=== PATIENT | male | born 1955 | race Caucasian/White ===

== ENCOUNTER 2016-07-20 09:19 | Inpatient (IN) | payer OTHER ==
[2016-07-17 16:59] VITALS: BMI 37.6
[~2016-07-20] VITALS: Ht 170.2 cm; Wt 108.0 kg
[2016-07-20] VITALS (13 sets, daily range): BP systolic 100–138; BP diastolic 57–70; PULSE 60–83; RESP 17–21; Ht 170.2 cm; Wt 108.0 kg
[~2016-07-20 09:19] MED LIST: CEFAZOLIN 1 GM INJ ONE; DEXAMETHASONE 4 MG/ML 1 ML INJ ONE
[2016-07-20] MEDS ORDERED: AMLO1CAP2 PO (10:19)
[2016-07-20] MEDS ORDERED: MONT10TA21 PO (10:19)
[2016-07-20] MEDS ORDERED: ATOR20TA38 PO (10:19)
[2016-07-20] MEDS ORDERED: GABA800T PO (10:19)
[2016-07-20] MEDS ORDERED: METF-388 PO (10:19)
[2016-07-20] MEDS ORDERED: TEMA15CA6 PO (10:21)
[2016-07-20] MEDS ORDERED: BUPIVACAINE 0.5%/EPI (SDV) 30 ML INJ ONE (10:56)
[2016-07-20] MEDS ORDERED: MIDAZOLAM 1 MG/ML 2 ML INJ ONE ×2 (11:03)
[2016-07-20] MEDS ORDERED: LIDOCAINE 2% (SDV) 5 ML INJ ONE ×2 (11:46→11:47)
[2016-07-20] MEDS ORDERED: PROPOFOL 20 ML ONE (11:46)
[2016-07-20] MEDS ORDERED: ROCURONIUM 50 MG INJ ONE ×3 (11:50→15:55)
[2016-07-20] MEDS ORDERED: ACETAMINOPHEN 1000MG/100ML IV 100 ML ONE (12:19)
[2016-07-20] MEDS ORDERED: morphine 10 MG INJ IV PRN (12:30)
[2016-07-20] MEDS ORDERED: ONDANSETRON 4 MG INJ IV PRN ×3 (12:30→14:00)
[2016-07-20] MEDS ORDERED: BISACODYL 10 MG SUPP PR PRN (12:30)
[2016-07-20] MEDS ORDERED: OXYCODONE/ACETAMINOPHEN (5/325) TAB PO PRN ×2 (12:30)
[2016-07-20] MEDS ORDERED: CEFAZOLIN 1 GM INJ IV SCH (12:30)
[2016-07-20] MEDS ORDERED: DIPHENHYDRAMINE 25 MG CAP PO PRN (12:30)
[2016-07-20] MEDS ORDERED: LABETALOL HCL 20MG INJ ONE ×2 (12:55→15:21)
[2016-07-20] MEDS ORDERED: POLYMYXIN/BACITRACIN 1L IRRIG ONE (13:05)
[2016-07-20] MEDS ORDERED: GELATIN SIZE 100 SPONGE ONE (13:05)
[2016-07-20] MEDS ORDERED: THROMBIN 5000 UNIT VIAL ONE (13:05)
[2016-07-20] MEDS ORDERED: ROPIVACAINE 0.5 % 30 ML VIAL ONE (13:05)
[2016-07-20] MEDS ORDERED: POVIDONE IODINE 10% 28.4 GM OINT ONE (13:05)
[2016-07-20] MEDS ORDERED: DIPHENHYDRAMINE 50 MG INJ IV PRN (14:00)
[2016-07-20] MEDS ORDERED: HYDROmorphONE 1 MG/ML SYG IV PRN ×2 (14:00)
[2016-07-20] MEDS ORDERED: NALOXONE (0.4 MG/ML) INJ IV PRN (14:00)
[2016-07-20] MEDS ORDERED: hydrALAzine 20 MG INJ IV PRN (14:00)
[2016-07-20] MEDS ORDERED: FENTAnyl 50 MCG/ML VIAL IV PRN ×2 (14:00)
[2016-07-20] MEDS ORDERED: MEPERIDINE 25 MG INJ IV PRN (14:00)
[2016-07-20] MEDS ORDERED: LABETALOL HCL 20MG INJ IV PRN (14:00)
[2016-07-20] MEDS ORDERED: HYDROmorphONE (0.2 MG/ML) 10ML SYG IV PRN ×3 (14:00)
[2016-07-20] MEDS ORDERED: BACITRACIN 50000 UNITS INJ ONE (14:38)
[2016-07-20] MEDS ORDERED: FENTAnyl 50 MCG/ML VIAL ONE (15:05)
[2016-07-20] MEDS ORDERED: ONDANSETRON 4 MG INJ ONE (15:54)
[2016-07-20] MEDS ORDERED: KETOROLAC 30 MG INJ ONE (16:16)
--- NOTE | 2016-07-20 16:48 | RADRPT ---
PROCEDURE: Intraoperative imaging of the right foot with fluoroscopy. CLINICAL INDICATION: Right foot pain. Intraoperative. TECHNIQUE: 9 images of the right foot were obtained in the operating room with an image intensifie r. No radiologist was in attendance. 0.5 minutes of fluoroscopy time was used. COMPARISON: No prior study is available for comparison. FINDINGS: Images demonstrate surgical instruments overlying the right midfoot. IMPRESSION: 1. Intraoperative imaging of the right foot. RPTAT: QQ .Tico Clarke MD, MD Date Time Electronically viewed and signed by .Tico Clarke MD, MD on 07/20/2016 16:48 .R/
[2016-07-20] MEDS: morphine 1 MG/ML 30 ML (PCA) IV SCH ×2 (17:44→22:56)
[2016-07-20] MEDS: VALSARTAN 160 MG TAB PO SCH (18:00)
[2016-07-20] MEDS ORDERED: DEXTROSE 50% 50 ML SYRINGE IV PRN ×2 (18:00)
[2016-07-20] MEDS ORDERED: GLUCOSE GEL 15 GRAM TUBE BUCCAL PRN (18:00)
[2016-07-20] MEDS: AMLODIPINE 10 MG TAB PO SCH (18:00)
[2016-07-20] MEDS ORDERED: GLUCOSE GEL 15 GRAM TUBE PO PRN ×2 (18:00)
[2016-07-20] MEDS ORDERED: GLUCAGON 1 MG INJ IM PRN (18:00)
--- NOTE | 2016-07-20 19:49 | CONS ---
DATE OF ADMISSION: 07/20/2016 DATE OF CONSULTATION: Thank you very much, Dr. Chambers, for allowing me to evaluate the above patient who just underwent ri ght foot surgery. HISTORICAL EVENTS: As you well know, this patient has had a 10 year history of worsening pain invol ving the lateral right foot and, because of this, was evaluated by you and, following your evaluatio n and CT imaging, elected to proceed with surgery. In recovery, he denies cough, wheezing, shortnes s of breath, nausea, vomiting, abdominal or chest pain. Does note some discomfort involving the rig ht antecubital fossa. PAST MEDICAL HISTORY: Includes: 1. Correction of a deviated septum. 2. History of GERD. 3. Diabetes. 4. Overweight status. 5. Hypertension MEDICATIONS: 1. Metformin 1000 mg b.i.d. 2. Lotrel 5/20 per day. 3. Singulair 10 per day. 4. Gabapentin 800 mg t.i.d. 5. Temazepam 15 mg at night. 6. Atorvastatin 20 mg per day. SOCIAL HISTORY: He is , does smoke. He does drink alcohol. PHYSICAL EXAMINATION: GENERAL: Kerrick male in no acute distress. VITAL SIGNS: BP 122/80, pulse 70, respirations are 20. He was afebrile. EYES: Extraocular muscles were full. NOSE, MOUTH, AND THROAT: Normal. NECK: Supple. There was no jugular venous distention, thyroid enlargement, or adenopathy. Carotid s 2+. LUNGS: Clear. HEART: Rhythm regular. ABDOMEN: Nontender. Liver and spleen were not palpable. No masses or tenderness were noted. EXTREMITIES: Right was in a cast. The left no edema, no calf tenderness. The right antecubital fo ssa revealed some slight tenderness. No redness, swelling. IMPRESSION: 1. Stable postop right foot surgery. 2. History of hypertension. Blood pressure meds will be continued and blood pressure monitored thr oughout. 3. Hyperlipidemia. Statins will be continued. 4. Pain involving the left antecubital fossa, likely musculoligamentous. 5. Diabetes mellitus. Continue metformin and will use a short-acting insulin before meals pending sugar levels. Dictated By: KHADRA CRAVEN MD MR/NTS Conf#: [id number] DID#: [id number]
[2016-07-20] MEDS: SOD CHLORIDE 0.9% 1,000 ML IV SCH ×2 (20:27→22:11)
[2016-07-20] MEDS ORDERED: ZOLPIDEM 5 MG TAB PO PRN (21:00)
[2016-07-20] MEDS ORDERED: MONTELUKAST 10 MG TAB PO SCH (21:00)
[2016-07-20] MEDS ORDERED: GABAPENTIN 400 MG CAP PO SCH (21:00)
[2016-07-20] MEDS ORDERED: ATORVASTATIN 20 MG TAB PO SCH ×2 (21:00)
[2016-07-20] MEDS: CEFAZOLIN 2 GM/50 ML (PMX) 50 ML IVPB SCH (21:25)
[2016-07-20] MEDS: SENNA/DOCUSATE NA (8.6MG/50MG) TAB PO SCH (21:26)
[2016-07-20] MEDS: GABAPENTIN 400 MG CAP PO SCH (21:26)
[2016-07-20] MEDS: ZOLPIDEM 5 MG TAB PO PRN (21:46)
--- NOTE | 2016-07-20 21:56 | OPR ---
DATE OF OPERATION: 07/20/2016 PREOPERATIVE DIAGNOSES: 1. 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 2. Large severe talonavicular osteophytes. POSTOPERATIVE DIAGNOSES: 1. 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 2. Large severe talonavicular osteophytes. OPERATION PERFORMED: 1. Arthrodesis of the right talonavicular joint with a 4.5 AO cannulated screw and a [employer] plate. 2. Excision of large spurs of the talus and navicular greater than 3 cm in size. 3. Iliac crest bone graft plus augment to the arthrodesis site. 4. Use of fluoroscopy to verify position and alignment of the guide pins, screws, and plate, and al so to verify removal of all osteophytes of talonavicular joint. 5. Short-leg cast. Extremely complex difficult procedure because the anatomy was quite abnormal, was quite altered, was difficult because of the large bone spurs that were scarred to the capsule to obtain good access to the talonavicular joint and the surgery itself was quite difficult because of the collapse of the n avicular. All this necessitated an additional 60 minutes of time, (22). SURGEON: Cyndy Chambers MD SCREW SUPERVISOR: Garth Varela ANESTHESIA: General with popliteal block. TOURNIQUET TIME: 138 minutes. DESCRIPTION OF PROCEDURE: The patient taken to the operating room and placed supine. Satisfactory popliteal block was given. Satisfactory general anesthesia was administered. The right iliac crest and the entire right lower leg were prepped and draped in the usual manner. Attention was turned f irst to the iliac crest. The skin was pulled up. An incision was made over the mid portion of the anterior iliac crest. Dis section carried down to subcutaneous tissue. The fascia was identified and opened over the iliac cr est. Retractors were used to retract the fascia. A saw was used to make 2 vertical cuts and 1 hori zontal cut and to open a trap door on the iliac crest cortical portion. Bone graft was obtained usi ng different angled curettes. Bone marrow aspirate was obtained with a syringe inserted with the sienna ne graft. After adequate bone graft had been obtained, the areas were packed with thrombin-soaked G elfoam. Gloves were changed. Our attention then turned to the foot. Incision was made along the talonavicular joint, carried proximal and distal, just medial to the ant erior tibial tendon. Dissection carried down to subcutaneous tissue. Anterior tibial tendon sheath , extensor retinaculum was opened and anterior tibial tendon was retracted. There was a lot of scar ring and the large talonavicular osteophytes were distorting the joint as well. The capsule was car efully peeled off medially and laterally, particularly over the osteophytes, until we could identify the entire talonavicular joint and then the naviculocuneiform joint. The osteophytes were removed with an osteotome and a rongeur from the talus and the navicular. A power rasp and a bur were used to smooth the remaining edges along the entire joint. Lateral fluoroscopic views showed complete re moval of the talonavicular osteophytes. The large osteophyte measured greater than 3 cm. A distrac tion device with pins was placed on the talonavicular joint. The joint was distracted. Further ost eophytes were removed circumferentially using different angled curettes. All of the sclerotic carti lis and bone were removed carefully. The cysts were curetted out along the navicular and talus. A bur was used to remove no more than 0.5 to 1 mm of bone along the navicular and talus to good bleed ing surfaces. Multiple "spot welds" were made with the bur to facilitate healing. A 0.045 K-wire w as used to drill multiple holes, then multiple impacts were made with an osteotome on the talus and navicular. Wounds irrigated repeatedly with antibiotic solution. The distraction device and pins w ere removed. Bone graft was inserted after it was mixed with augment try to get it to heal, since t his is such a difficult area to heal normally. Bone graft was inserted along the talonavicular join t. The foot was reduced, lined up to the knee. A guide pin from the 4.5 AO cannulated screw set wa s inserted at the naviculocuneiform joint and inserted medially. Excellent fixation was obtained. Excellent alignment of the foot and ankle and the pin was in appropriate position in the AP and late ral radiographs. Hole was partially drilled and then an appropriate length screw was inserted. We then compressed it all the way. A 4-hole [employer] claw plate was then inserted with a K-wire. We checked to make sure the hole was in the right position because the navicular was quite narrow and it tapered laterally. We tried to keep the claw plate as much as we could more medially where t here was more bone. Four 3.5 screws, locked, were inserted. Excellent fixation was obtained. The position of the claw plate and screws was appropriate. We did not violate into the joints. The com pression was then placed on the 4.5 screw until the joint was strongly compressed and then compressi on device was used to spread the claw plate and compress further. Additional bone graft was packed throughout the joint. Wounds irrigated with antibiotic solution, being careful not to lose the bone graft. The tourniquet was released. Bleeders were coagulated. The capsule was closed with a runn ing 0 undyed Vicryl. The tendon sheath was closed with a running 3-0 undyed Vicryl, subcutaneous ti ssue was closed loosely just a few sutures, with 3-0 undyed Vicryl and skin was closed with 4-0 ana k nylon. Gloves were changed repeatedly throughout the closure. The iliac crest wounds were irrigated clear. Thrombin soaked Gelfoam pieces were removed. The fasc ia was closed with a running #1 PDS, subcutaneous tissue was closed with 2-0 and 3-0 undyed Vicryl, and the skin with a running 3-0 subcuticular Prolene. Steri-Strips were applied as well as compress ion dressing to the hip. Compression dressing was then applied to the foot after a saphenous nerve block was done with 0.5% ropivacaine. Compression dressing was applied as well as short-leg cast in neutral position. Interprocedure sponge and needle count was correct. The patient tolerated proce dure well and the cast was split in the recovery room. COMMUNITY ENGAGEMENT COORDINATOR ORTHOPEDIC SURGEON: During the procedure, an animal assistant orthopedic surgeon was used at my request. The animal assistant helped with retraction, distraction, as well as helping obtain the iliac cre st bone graft. Most importantly, the animal assistant inserted the screws while I held the foot reduced in appropriate position. Without a skilled orthopedic surgeon doing this, this procedure could not diaz ve been done; therefore, should be compensated appropriately. Dictated By: CYNDY BANKS/ARMANDO Conf#: [id number] DID#: [id number]
[2016-07-21] VITALS (9 sets, daily range): BP systolic 100–133; BP diastolic 56–80; PULSE 70–93; RESP 17–20
[2016-07-21] MEDS: ZOLPIDEM 5 MG TAB PO PRN (00:31)
[2016-07-21] MEDS: CEFAZOLIN 2 GM/50 ML (PMX) 50 ML IVPB SCH ×3 (02:20→18:00)
--- NOTE | 2016-07-21 07:12 | PN ---
Date/Time of Note Date/Time of Note DATE: 07/21/16 TIME: 07:06 Assessment/Plan VTE Prophylaxis VTE Prophylaxis Intervention: anti-embolic stocking, other Lines/Catheters IV Catheter Type (from Nrsg): Peripheral IV Assessment/Plan Chief Complaint/Hosp Course #1 POD1 s/p right talonavicular fusion #2 Hypertension #3 DM 2 Problems: Assessment/Plan - Manage pain but balance with somnolence. (Currently satting 93%) - Wean TRANSPORT RN when able - Home later today versus tomorrow - PT to mobilize, NWB RLE - Xarelto for DVT prophy with SCD to other leg - Call team for dismissal order if ready to leave Subjective 24 Hr Interval Summary Free Text/Dictation Patient did well overnight with no acute events. He is quite somnolent this morning and sleeping comfortably. He does wake to answer questions briefly and denies pain. Denies CP,SOB. Cardiovascular: no complaints Exam/Review of Systems Vital Signs Vitals Vital Signs Date Time Temp Pulse Resp B/P Pulse Ox O2 Delivery O2 Flow Rate FiO2 07/21/16 03:52 93 17 133/75 95 Nasal Cannula 07/21/16 00:28 98.0 07/20/16 20:00 2.0 Intake and Output 07/20/16 07/20/16 07/21/16 15:00 23:00 07:00 Intake Total 1500 ml 130 ml 750 ml Output Total 150 ml Balance 1500 ml -20 ml 750 ml Exam Patient somnolent in bed but arousable. His right foot is elevated in the cast. He is just starting to be able to wiggle his toes. Endorses returning sensation on the dorsum of his foot. His foot is warm and well perfused with normal capillary refill. Results Results 24 hrs Laboratory Tests Test 07/20/16 10:08 07/20/16 17:55 Bedside Glucose 122 132 Medications Medications Current Medications Senna/Docusate Sodium (Senokot-S) 1 tab BID PO Last administered on 07/20/16t 21 :26; Admin Dose 1 TAB; Start 07/20/16 at 21:00 Magnesium Hydroxide (Milk Of Mag) 30 ml HS PO ; Start 07/22/16 at 21:00 Bisacodyl 10 mg 10 mg DAILY PRN [place] CONSTIPATION; Start 07/20/16 at 12:30 Sodium Chloride (NS) 1,000 ml @ 100 mls/hr Q10H IV Last administered on 20:27; Admin Dose 100 MLS/HR; Start 07/20/16 at 12:11 Oxycodone/ Acetaminophen (Percocet (5/ 325)) 1 tab Q4H PRN PO PAIN; Start at 12:30 Oxycodone/ Acetaminophen (Percocet (5/ 325)) 2 tab Q4H PRN PO PAIN; Start at 12:30 Morphine Sulfate (morphine) 5 mg Q4H PRN IV PAIN LEVEL 7-10; Start 07/20/16 at 12:30 Ondansetron HCl (Zofran Inj) 4 mg Q4H PRN IV NAUSEA AND/OR VOMITING; Start 07/20 at 12:30 Diphenhydramine HCl (Benadryl) 25 mg Q4H PRN PO ITCHING; Start 07/20/16 at 12:30 Morphine Sulfate 1.5 MG DOSE 10 ... Q4PCA IV Last administered on 07/20/16 22: 56; Admin Dose 30 MG; Start 07/20/16 at 12:30 Cefazolin Sodium/ Dextrose (Ancef 2 Gm/50 ml (Pmx)) 50 ml @ 100 mls/hr Q8H IVPB Last administered on 07/21/16 02:20; Admin Dose 100 MLS/HR; Start at 18:00; Stop 07/22/16 at 10:29 Hydromorphone HCl (Dilaudid) 0.2 mg Q2H PRN IV PAIN LEVEL 1-5; Start 07/20/16 at 14:00; Stop 07/21/16 at 13:59 Hydromorphone HCl (Dilaudid) 0.4 mg Q2H PRN IV PAIN LEVEL 6-10; Start 07/20/16 at 14:00; Stop 07/21/16 at 13:59 Diphenhydramine HCl (Benadryl) 25 mg Q4H PRN IV PRURITUS; Start 07/20/16 at 14: 00; Stop 07/21/16 at 13:59 Ondansetron HCl (Zofran Inj) 4 mg Q6H PRN IV NAUSEA AND/OR VOMITING; Start 07/20 at 14:00; Stop 07/21/16 at 13:59 Naloxone HCl (Narcan) 0.2 mg Q2M PRN IV FOR RESP RATE 8 OR LESS; Start 07/20/16 at 14:00; Stop 07/21/16 at 13:59 Atorvastatin Calcium (Lipitor) 20 mg HS PO Last administered on 07/20/16 21:26 ; Admin Dose 20 MG; Start 07/20/16 at 21:00 Gabapentin (Neurontin) 800 mg TID PO Last administered on 07/20/16 21:26; Admin Dose 800 MG; Start 07/20/16 at 21:00 Montelukast Sodium (Singulair) 10 mg QHS PO Last administered on 07/20/16 21:26 ; Admin Dose 10 MG; Start 07/20/16 at 21:00 Amlodipine Besylate (Norvasc) 10 mg DAILY PO ; Start 07/20/16 at 18:00 Valsartan (Diovan) 160 mg DAILY PO ; Start 07/20/16 at 18:00 Miscellaneous Information 1 ea NOTE XX ; Start 07/20/16 at 18:00 Glucose (Glutose) 15 gm Q15M PRN PO DECREASED GLUCOSE; Start 07/20/16 at 18:00 Glucose (Glutose) 22.5 gm Q15M PRN PO DECREASED GLUCOSE; Start 07/20/16 at 18:00 Dextrose (D50w Syringe) 25 ml Q15M PRN IV DECREASED GLUCOSE; Start 07/20/16 at 18:00 Dextrose (D50w Syringe) 50 ml Q15M PRN IV DECREASED GLUCOSE; Start 07/20/16 at 18:00 Glucagon (Glucagen) 1 mg Q15M PRN IM DECREASED GLUCOSE; Start 07/20/16 at 18:00 Glucose (Glutose) 15 gm Q15M PRN BUCCAL DECREASED GLUCOSE; Start 07/20/16 at 18: 00 CYNDY ORLANDO MD Jul 21, 2016 07:11
[2016-07-21] MEDS: INSULIN ASPART [NOVOLOG] 3 ML PEN SC SCH ×3 (07:20→17:25)
[2016-07-21] MEDS: metFORMIN 500 MG TAB PO SCH ×2 (07:50→17:55)
[2016-07-21] MEDS: SOD CHLORIDE 0.9% 1,000 ML IV SCH ×2 (08:39→18:11)
--- NOTE | 2016-07-21 08:42 | CONS ---
Date/Time of Note Date/Time of Note DATE: 07/21/16 TIME: 08:39 Assessment/Plan Assessment/Plan Additional Assessment/Plan 1. S/P right foot surgery, stable 2. Hx HBP, BP well controlled. 3. Hx DM, sugar well controlled. 4. Somnolent, I will rev with RN pain med program. 5. Labs are pending. Consultation Date/Type/Reason Admit Date/Time Jul 20, 2016 at 12:11 Initial Consult Date Detailed Summary Respiratory: No cough, No shortness of breath Cardiovascular: No chest pain Gastrointestinal: no complaints Genitourinary: no complaints Musculoskeletal: bone/joint pain (mild right foot discomfort) Exam/Review of Systems Vital Signs Vitals Vital Signs Date Time Temp Pulse Resp B/P Pulse Ox O2 Delivery O2 Flow Rate FiO2 07/21/16 08:10 97.8 89 20 129/65 92 07/21/16 03:52 Nasal Cannula 07/20/16 20:00 2.0 Intake and Output 07/20/16 07/20/16 07/21/16 15:00 23:00 07:00 Intake Total 1500 ml 130 ml 1200 ml Output Total 150 ml 300 ml Balance 1500 ml -20 ml 900 ml Exam Neck: No jvd Respiratory: clear to auscultation Cardiovascular: regular rate and rhythm Gastrointestinal: soft Extremities: edema (left foot, right in cast) Results Results 24 hrs Laboratory Tests Test 07/20/16 10:08 07/20/16 17:55 07/21/16 08:08 Bedside Glucose 122 132 199 Medications Medications Current Medications Senna/Docusate Sodium (Senokot-S) 1 tab BID PO Last administered on 07/20/16 21 :26; Admin Dose 1 TAB; Start 07/20/16 at 21:00 Magnesium Hydroxide (Milk Of Mag) 30 ml HS PO ; Start 07/22/16 at 21:00 Bisacodyl 10 mg 10 mg DAILY PRN [place] CONSTIPATION; Start 07/20/16 at 12:30 Sodium Chloride (NS) 1,000 ml @ 100 mls/hr Q10H IV Last administered on 20:27; Admin Dose 100 MLS/HR; Start 07/20/16 at 12:11 Oxycodone/ Acetaminophen (Percocet (5/ 325)) 1 tab Q4H PRN PO PAIN; Start at 12:30 Oxycodone/ Acetaminophen (Percocet (5/ 325)) 2 tab Q4H PRN PO PAIN; Start at 12:30 Morphine Sulfate (morphine) 5 mg Q4H PRN IV PAIN LEVEL 7-10; Start 07/20/16 at 12:30 Ondansetron HCl (Zofran Inj) 4 mg Q4H PRN IV NAUSEA AND/OR VOMITING; Start 07/20 at 12:30 Diphenhydramine HCl (Benadryl) 25 mg Q4H PRN PO ITCHING; Start 07/20/16 at 12:30 Morphine Sulfate 1.5 MG DOSE 10 ... Q4PCA IV Last administered on 07/20/16 22: 56; Admin Dose 30 MG; Start 07/20/16 at 12:30 Cefazolin Sodium/ Dextrose (Ancef 2 Gm/50 ml (Pmx)) 50 ml @ 100 mls/hr Q8H IVPB Last administered on 07/21/16 02:20; Admin Dose 100 MLS/HR; Start at 18:00; Stop 07/22/16 at 10:29 Hydromorphone HCl (Dilaudid) 0.2 mg Q2H PRN IV PAIN LEVEL 1-5; Start 07/20/16 at 14:00; Stop 07/21/16 at 13:59 Hydromorphone HCl (Dilaudid) 0.4 mg Q2H PRN IV PAIN LEVEL 6-10; Start 07/20/16 at 14:00; Stop 07/21/16 at 13:59 Diphenhydramine HCl (Benadryl) 25 mg Q4H PRN IV PRURITUS; Start 07/20/16 at 14: 00; Stop 07/21/16 at 13:59 Ondansetron HCl (Zofran Inj) 4 mg Q6H PRN IV NAUSEA AND/OR VOMITING; Start 07/20 at 14:00; Stop 07/21/16 at 13:59 Naloxone HCl (Narcan) 0.2 mg Q2M PRN IV FOR RESP RATE 8 OR LESS; Start 07/20/16 at 14:00; Stop 07/21/16 at 13:59 Atorvastatin Calcium (Lipitor) 20 mg HS PO Last administered on 07/20/16 21:26 ; Admin Dose 20 MG; Start 07/20/16 at 21:00 Gabapentin (Neurontin) 800 mg TID PO Last administered on 07/20/16 21:26; Admin Dose 800 MG; Start 07/20/16 at 21:00 Montelukast Sodium (Singulair) 10 mg QHS PO Last administered on 07/20/16 21:26 ; Admin Dose 10 MG; Start 07/20/16 at 21:00 Amlodipine Besylate (Norvasc) 10 mg DAILY PO ; Start 07/20/16 at 18:00 Valsartan (Diovan) 160 mg DAILY PO ; Start 07/20/16 at 18:00 Miscellaneous Information 1 ea NOTE XX ; Start 07/20/16 at 18:00 Glucose (Glutose) 15 gm Q15M PRN PO DECREASED GLUCOSE; Start 07/20/16 at 18:00 Glucose (Glutose) 22.5 gm Q15M PRN PO DECREASED GLUCOSE; Start 07/20/16 at 18:00 Dextrose (D50w Syringe) 25 ml Q15M PRN IV DECREASED GLUCOSE; Start 07/20/16 at 18:00 Dextrose (D50w Syringe) 50 ml Q15M PRN IV DECREASED GLUCOSE; Start 07/20/16 at 18:00 Glucagon (Glucagen) 1 mg Q15M PRN IM DECREASED GLUCOSE; Start 07/20/16 at 18:00 Glucose (Glutose) 15 gm Q15M PRN BUCCAL DECREASED GLUCOSE; Start 07/20/16 at 18: 00 KHADRA CRAVEN MD Jul 21, 2016 08:41
[2016-07-21] MEDS ORDERED: AMLODIPINE 10 MG TAB PO SCH (09:00)
[2016-07-21] MEDS: VALSARTAN 160 MG TAB PO SCH (09:00)
[2016-07-21] MEDS: SENNA/DOCUSATE NA (8.6MG/50MG) TAB PO SCH (09:00)
[2016-07-21] MEDS: AMLODIPINE 10 MG TAB PO SCH (09:00)
[2016-07-21] MEDS: GABAPENTIN 400 MG CAP PO SCH ×2 (09:00→13:19)
[2016-07-21 11:10] LABS: BASOPHILS % 0.4 % (0.0-2.0); HEMATOCRIT 35.8 % (42.0-52.0); HEMOGLOBIN 12.3 g/dl (14.0-18.0); LYMPHOCYTES # 1.7 10^3/ul (0.8-2.9); LYMPHOCYTES % 15.4 % (15.0-51.0); MEAN CORPUSCULAR HEMOGLOBIN 31.7 pg (29.0-33.0); MEAN CORPUSCULAR HGB CONC 34.3 g/dl (32.0-37.0); MEAN CORPUSCULAR VOLUME 92.4 fl (82.0-101.0); MEAN PLATELET VOLUME 10.4 fl (7.4-10.4); MONOCYTE # 1.4 10^3/ul (0.3-0.9); MONOCYTES % 13.2 % (0.0-11.0); NEUTROPHIL # 7.7 10^3/ul (1.6-7.5); PLATELET COUNT 215 10^3/UL (140-440); RED BLOOD COUNT 3.88 10^6/ul (4.70-6.10); RED CELL DISTRIBUTION WIDTH 13.3 % (11.5-14.5); UNCORRECTED WBC 10.9 10^3/ul (4.8-10.8); WHITE BLOOD COUNT 10.9 10^3/ul (4.8-10.8)
[2016-07-21 11:14] LABS: CONDITION 1
[2016-07-21 11:15] LABS: POTASSIUM 4.4 mmol/L (3.5-5.1)
[2016-07-21 11:18] LABS: CREATININE 0.82 mg/dl (0.61-1.24)
[2016-07-21 11:19] LABS: CALCIUM 8.6 mg/dl (8.4-10.2)
--- NOTE | 2016-07-21 17:41 | PDOCDIS ---
Discharge Instructions CONDITION Patient Condition: Good HOME CARE INSTRUCTIONS: Diet Instructions: Regular ACTIVITY: Activity Restrictions: No Weight Bearing Activity Restrictions Comment: Please call Dr. Orlando's office tomorrow if your cast is not fitting well. CYNDY ORLANDO MD Jul 21, 2016 17:41
[2016-07-21] MEDS ORDERED: RIVAROXABAN 10 MG TABLET PO SCH (17:55)
[2016-07-22] MEDS ORDERED: MAGNESIUM HYDROXIDE 30ML CUP PO SCH (21:00)
--- NOTE | 2016-07-23 01:45 | DS ---
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 OPERATION PERFORMED: Surgery on 07/20 was: 1. Arthrodesis, right talonavicular joint with plate and screws 2. Excision of dorsal osteophytes of the talus and navicular. 3. Iliac crest bone graft to the arthrodesis site. HISTORY OF PRESENT ILLNESS: The patient is a 60-year-old male with severe pain in his right talonav icular joint. Evaluation reveals severe arthritis with bone spurs and osteophytes. PAST MEDICAL HISTORY: See the history and physical record. PHYSICAL EXAMINATION: Normal except the orthopedic exam which revealed severe pain and palpable ost eophytes at talonavicular joint. Laboratory was normal. Chest x-ray was clear. EKG was normal. HOSPITAL COURSE: The patient taken to the operating room and underwent above-mentioned procedure. Postoperatively, he was somewhat somnolent on the first postoperative day from too much sleeping pil ls. However, he felt much better by end of the day, was up walking, was able to be discharged on pa in medication and antibiotics to be followed in the office in 1 week. Dictated By: CYNDY BANKS/ARMANDO Conf#: [id number] DID#: [id number]
== END 2016-07-21 19:35 | disposition home or self-care (01) | DRG 505 ==
LOC: SDS 09:19 → MS1 12:11 → SDS 12:11 → MS1 18:30
PROVIDERS: ADMIT Orthopaedic Surgery; ATTEND Orthopaedic Surgery
PROC: 0SGH04Z Fusion of Right Tarsal Joint with Internal Fixation Device, Open Approach (ICD-10-PCS; 2016-07-20)
PROC: 0QB20ZZ Excision of Right Pelvic Bone, Open Approach (ICD-10-PCS; 2016-07-20)
PROC: 0QBL0ZZ Excision of Right Tarsal, Open Approach (ICD-10-PCS; 2016-07-20)
PROC: 07DR0ZZ Extraction of Iliac Bone Marrow, Open Approach (ICD-10-PCS; 2016-07-20)
PROC: 0SGH07Z Fusion of Right Tarsal Joint with Autologous Tissue Substitute, Open Approach (ICD-10-PCS; principal; 2016-07-20 11:30)
DX: M87.874 Other osteonecrosis, right foot (principal); I10 Essential (primary) hypertension; M19.071 Primary osteoarthritis, right ankle and foot; M77.51 Other enthesopathy of right foot and ankle; E11.9 Type 2 diabetes mellitus without complications
CPT/HCPCS: 73620; 80048; 82962; 85025; 97163; C1713; J0131; J0690; J1100; J1170; J1815; J1885; J2250; J2270; J2405; J2795; J3010; J7030